=== PATIENT | male | born 1965 | race Caucasian/White ===

== ENCOUNTER 2018-03-05 23:31 | Emergency (ER) | payer OTHER ==
[2018-03-06] MEDS ORDERED: TOPICAL SKIN ADHESIVE 1 EACH AMP TOPICAL ONE (00:50)
--- NOTE | 2018-03-06 00:57 | ED ---
Wound/Laceration HPI - General Chief Complaint: Wound/Laceration Stated Complaint: Head injury/LAC Time Seen by Provider: 03/06/18 00:38 Source: patient, RN notes reviewed Mode of arrival: ambulatory Limitations: no limitations - History of Present Illness Initial Comments: Patient's a 52-year-old male presented to the emergency room today with chief complaint of a abrasion to the top of his head. He states he was fishing earlier today was walking he asked and hit the top of age wall bridge with his head. States did not come backwards and caused an abrasion that is acceptable time stopping the bleeding. He does admit that he did try some liquid bandage and it has improved but still seems to be bleeding from a spot or 2. Patient states his neighbor who is a nurse advised come here in emergency room. He states tetanus is up-to-date. He denies any other complaints or symptoms. Denies any headache, visual changes, nausea or vomiting, neck pain, back pain, chest pain. - Related Data Allergies Allergy/AdvReac Type Severity Reaction Status Date / Time No Known Allergies Allergy Verified 03/05/18 23:48 Review of Systems ROS Statement: Those systems with pertinent positive or pertinent negative responses have been documented in the HPI. ROS Other: All systems not noted in ROS Statement are negative. Past Medical History Past Medical History: Hypertension History of Any Multi-Drug Resistant Organisms: None Reported Past Surgical History: No Surgical Hx Reported Past Psychological History: No Psychological Hx Reported Smoking Status: Current every day smoker Past Alcohol Use History: Occasional Past Drug Use History: Opiates General Exam - General Exam Comments Initial Comments: General: The patient is awake and alert, in no distress, and does not appear acutely ill. Eye: Pupils are equal, round and reactive to light, extra-ocular movements are intact. No nystagmus. There is normal conjunctiva bilaterally. No signs of icterus. Ears, nose, mouth and throat: There are moist mucous membranes and no oral lesions. Neck: The neck is supple, there is no tenderness or JVD. Musculoskeletal: Normal ROM, no tenderness. Strength 5/5. Sensation intact. Pulses equal bilaterally 2+. Neurological: A&O x 3. CN II-XII intact, There are no obvious motor or sensory deficits. Coordination appears grossly intact. Speech is normal. Skin: Superficial abrasion to the top of the scalp. Area measures approximately 2 cm x 3 cm. Psychiatric: Cooperative, appropriate mood & affect, normal judgment. Limitations: no limitations Course Vital Signs 03/05/18 23:45 Temperature 97.6 F Pulse Rate 82 Respiratory 18 Rate Blood Pressure 124/82 O2 Sat by Pulse 96 Oximetry Procedures - Procedures Initial comment: Abrasion site was cleaned with saline. Dermabond was used to cover edges. Patient tolerated well. Medical Decision Making - Medical Decision Making There is no active bleeding. Dermabond was used to go over the abrasion. Advised that work as a scab. His tetanus is up-to-date. Patient discharged home. Disposition Clinical Impression: Scalp abrasion Disposition: HOME SELF-CARE Condition: Good Instructions: Abrasion (ED) Additional Instructions: Please allow the glue to fall off on its own over the next 2-5 days. Please watch for signs of infection. Please return to emergency room for any other concerns. Is patient prescribed a controlled substance at d/c from ED?: No Referrals: None,Stated [Primary Care Provider] - 1-2 days Time of Disposition: 00:52
[2018-03-06 01:16] VITALS: BP 128/77; PULSE 78; RESP 16; TEMP 97.9
== END 2018-03-06 01:16 | disposition home or self-care (01) ==
LOC: EC 23:31
DX: S00.01XA Abrasion of scalp, initial encounter (principal); F17.200 Nicotine dependence, unspecified, uncomplicated; W22.01XA Walked into wall, initial encounter; Y93.89 Activity, other specified
CPT/HCPCS: 12001; 99282